=== PATIENT | female | born 1995 | race Caucasian/White ===

== ENCOUNTER 2017-03-03 10:30 | Emergency (ER) | payer BC ==
[2017-03-03 10:51] VITALS: BP 109/65
--- NOTE | 2017-03-03 11:50 | UC ---
freeman Singh Timothy, scribed for Charissa Lewis MD on 03/03/17 at 1143 . Skin Complaint HPI - HPI Summary HPI Summary: Ayala Perez is a 21 yo female presenting to [facility] accompanied by her mother with a red lump to the left of her groin since yesterday, which at first she thought was an ingrown hair and attempted to open herself, which resulted in bloody discharge. Per her mother she is prone to ingrown hairs. After no success , she thinks it may be a tick bite. The area has become larger, and is red, swollen, and irritated per triage. She states she has been outside lately and has been feeling fatigued with some body aches. She is unsure if she was bitte by a tick. She has had lyme disease in the past, and has had the full Tx, but experienced a relapse in the fall of 2014 which she was treated for again. Her MHx includes lyme disease. Pt medication list reviewed this visit. - History of Current Complaint Chief Complaint: UCSkin Time Seen by Provider: 03/03/17 11:29 Stated Complaint: TICK BITE Hx Obtained From: Patient Hx Last Menstrual Period: 03/02/17 Onset/Duration: Sudden Onset, Lasting Days, Still Present Skin Exposure Onset/Duration: Days Ago Timing: Constant Onset Severity: Moderate Current Severity: Moderate Location: Other - left groin Character: Swelling, Pain, Redness Related History: Insect Bite/Sting - Allergy/Home Medications Allergies/Adverse Reactions: Allergies Allergy/AdvReac Type Severity Reaction Status Date / Time Latex Allergy Rash Verified 03/03/17 10:45 Home Medications: Home Medications NK [No Home Medications Reported] 03/03/17 [History Confirmed 03/03/17] Review of Systems Constitutional: Fatigue Skin: Other - left groin painful, red, swollen area Eyes: Negative ENT: Negative Respiratory: Negative Cardiovascular: Negative Gastrointestinal: Negative Genitourinary: Negative Motor: Negative Neurovascular: Negative Musculoskeletal: Myalgia Neurological: Negative Psychological: Negative All Other Systems Reviewed And Are Negative: Yes PMH/Surg Hx/FS Hx/Imm Hx - Additional Past Medical History Additional PMH: lyme disease - Surgical History Surgical History: None - Family History Known Family History: Negative: Diabetes, Other - lyme disease - Social History Alcohol Use: Occasionally Substance Use Type: None Smoking Status (MU): Never Smoked Tobacco Physical Exam Triage Information Reviewed: Yes Vital Signs: Initial Vital Signs Temp 98.5 F 03/03/17 10:45 Pulse 59 03/03/17 10:45 Resp 16 03/03/17 10:45 BP 109/65 03/03/17 10:45 Pulse Ox 100 03/03/17 10:45 Vital Signs Reviewed: Yes Course/Dx - Course Course Of Treatment: Ayala Perez is a 21 yo female presenting to [facility] with a lump on her left groin that is red, swollen, painful, and irritated S/P attempt to open it by Pt as she thought it was an ingrown hair. Pt medication list reviewed this visit. After clinical examination, she will be discharged home with appropriate instructions and follow up. - Differential Diagnoses - Skin Complaint Differential Diagnoses: Cellulitis, Other - folliculitis, ingrown hair Discharge - Discharge Plan Condition: Stable Disposition: HOME Patient Education Materials: Insect Bite or Sting (ED), Warm Compress or Soak ( ED) Referrals: [facility] [Outside] - 2 Days Additional Instructions: -The doctor that examined you today does not think your wound is infected or related to a tick bite - It is recommended that you apply warm, wet wash cloth to your wound 2-3 times a day - Place a band aide or wear different underwear to prevent rubbing of the wound - monitor your wound for signs of infection - reddness, red streaking, fever, chills, drainage or any other concerns You have been given referral information to arrange with a follow-up appointment. IT is recommended you call to schedule a follow-up. Return to urgent care or the emergency department with any new or recurring symptoms. The documentation as recorded by the freeman mendoza Timothy accurately reflects the service I personally performed and the decisions made by , Charissa Lewis MD.
== END 2017-03-03 12:00 | disposition home or self-care (01) ==
LOC: UCEAST 10:30
DX: L03.314 Cellulitis of groin (principal); L73.9 Follicular disorder, unspecified; Z86.19 Personal history of other infectious and parasitic diseases
CPT/HCPCS: 99211; G0463